=== PATIENT | female | born 1985 | race Caucasian/White ===

== ENCOUNTER → 2023-02-26 | Outpatient (CLI) | payer OTHER ==
[2023-02-26 17:31] LABS: ALT 21 U/L (8-44); AST 18 U/L (13-35); Albumin 4.3 d/dL (3.8-4.9); Albumin/Globulin Ratio 1.87 Ratio (1.60-3.17); Alkaline Phosphatase 65 U/L (41-126); Blood Urea Nitrogen 14.7 mg/dL (9.0-27.0); Calcium 9.4 mg/dL (8.7-10.3); Chloride 105 mmol/L (96-109); Globulin 2.3 d/dL (1.6-3.3); Glucose 86 mg/dL (70-110); Potassium 4.4 mmol/L (3.5-5.5); Sodium 139 mmol/L (135-145); Total Bilirubin 0.2 mg/dL (0.3-1.2); Total Protein 6.6 d/dL (6.2-8.2)
[2023-02-26 17:53] LABS: Basophils # (A) 0.04 X 10*3/uL (0.00-0.10); Basophils % (A) 0.6 %; Eosinophils # (A) 0.09 X 10*3/uL (0.04-0.35); Eosinophils % (A) 1.3 %; HCT 42.2 % (37.2-46.3); HGB 13.3 d/dL (12.0-15.0); Lymphocytes # (A) 1.94 X 10*3/uL (0.90-5.00); Lymphocytes % (A) 28.4 %; MCH 30.6 pg (27.0-32.0); MCHC 31.5 d/dL (32.0-37.0); Mean Platelet Volume 10.9 FL (9.5-12.2); Monocytes % (A) 5.9 %; NRBC Per 100 WBC 0 X 10*3/uL (0.00-0.01); Neutrophils # (A) 4.33 X 10*3/uL (1.80-7.70); Neutrophils % (A) 63.4 %; Platelet Count 319 X 10*3/uL (140-440); RBC 4.35 X 10*6/uL (4.10-5.20); WBC 6.83 X 10*3/uL (4.50-10.00)
== END | disposition home or self-care (01) ==
LOC: LABWHC1 10:45
PROVIDERS: ATTEND Nurse Practitioner Family
DX: R10.9 Unspecified abdominal pain (principal)
CPT/HCPCS: 36415; 80053; 85025

== ENCOUNTER 2023-12-16 10:12 | Observation (INO) | payer OTHER ==
[2023-12-16 11:47] LABS: Basophils % (A) 0 %; Eosinophils # (A) 0.2 k/uL (0-0.7); Eosinophils % (A) 2 %; HCT 44.2 % (34.0-46.0); Lymphocytes # (A) 1.9 k/uL (1.0-4.8); Lymphocytes % (A) 19 %; MCHC 31.7 g/dL (31.0-37.0); MCV 91.6 fL (80.0-100.0); Mean Platelet Volume 7.8; Monocytes # (A) 0.4 k/uL (0-1.0); Monocytes % (A) 4 %; Neutrophils % (A) 72 %; Platelet Count 329 k/uL (150-450); RBC 4.83 m/uL (3.80-5.40); RDW 13.3 % (11.5-15.5); WBC 9.7 k/uL (3.8-10.6)
[2023-12-16] MEDS: SODIUM CHLORIDE 0.9% 1,000 ML IV STA (11:49)
[2023-12-16 12:18] LABS: ALT 20 U/L (4-34); African American GFR (CKD) >90 (>60 ml/min/1.73 sqM); Anion Gap 7 mmol/L; Blood Urea Nitrogen 13 mg/dL (7-17); Calcium 9.2 mg/dL (8.4-10.2); Carbon Dioxide 22 mmol/L (22-30); Chloride 110 mmol/L (98-107); Glucose 99 mg/dL (74-99); Non-African American GFR(CKD) >90 (>60 ml/min/1.73 sqM); Sodium 139 mmol/L (137-145); Total Bilirubin 0.7 mg/dL (0.2-1.3)
[2023-12-16 12:24] LABS: INR 0.9 (<1.2); Partial Thromboplastin Time 26.5 sec (22.0-30.0); Prothrombin Time 9.9 sec (10.0-12.5)
[2023-12-16 12:26] LABS: Appearance,Urine Clear (Clear); Bacteria,Urine Few /hpf; Bilirubin,Urine Negative (Negative); Blood,Urine Negative (Negative); Color,Urine Colorless; Glucose,Urine (UA) Negative (Negative); Ketones,Urine Negative (Negative); Leukocyte Esterase,Urine Small (Negative); Mucus,Urine Rare /hpf; Nitrite,Urine Negative (Negative); Protein,Urine Negative (Negative); RBC,Urine 1 /hpf (0-5); Specific Gravity,Urine 1.008 (1.001-1.035); Squamous Epithelial Cell,Urine 7 /hpf (0-4); Urobilinogen,Urine <2.0 mg/dL (<2.0); WBC,Urine 3 /hpf (0-5)
--- NOTE | 2023-12-16 12:34 | XR ---
EXAMINATION TYPE: XR chest 2V DATE OF EXAM: 12/16/2023 12:06 PM CLINICAL INDICATION:Female, 38 years old with history of dysrhythmia; PHH COMPARISON: None TECHNIQUE: XR chest 2V Frontal and lateral views of the chest. FINDINGS: Lungs/Pleura: There is no evidence of pleural effusion, focal consolidation, or pneumothorax. Pulmonary vascularity: Unremarkable. Heart/mediastinum: Cardiomediastinal silhouette is unremarkable. Musculoskeletal: No acute osseous pathology. IMPRESSION: No acute cardiopulmonary disease/process.
[2023-12-16 12:43] LABS: Amphetamine Screen,Urine Not Detected (NotDetected); Benzodiazepines Screen,Urine Not Detected (NotDetected); Cocaine Screen,Urine Not Detected (NotDetected); Opiate Screen,Urine Not Detected (NotDetected); Phencyclidine Screen,Urine Not Detected (NotDetected); Tricyclic Antidepressant,Urine Not Detected (NotDetected); Urn Cannabinoid Scrn Not Detected (NotDetected)
[2023-12-16 12:44] LABS: Barbiturate Screen,Urine Not Detected (NotDetected); Methadone Screen, Urine Not Detected (NotDetected); Oxycodone Screen, Urine Not Detected (NotDetected)
--- NOTE | 2023-12-16 12:45 | ED ---
General Adult HPI - General Chief complaint: Arrhythmia/Palpitations Stated complaint: Irregular heart rate Time Seen by Provider: 12/16/23 12:37 Source: patient, RN notes reviewed, old records reviewed Mode of arrival: ambulatory Limitations: no limitations - History of Present Illness Initial comments: Patient is a 38-year-old female with past medical history remarkable for anxiety, who presents emergency department complaining of fatigue, as well as what she feels is intermittent bradycardia. 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 While at work today she felt the same way and they checked her pulse ox which registered in the 40s at 1 point. Presents for further evaluation at this time. Denies feeling anxious. Denies any chest pain or shortness of breath. Denies any nausea or vomiting or fevers. Denies any other acute complaints at this time. Current heart rate is within acceptable limits. Presents for further evaluation. No personal history of cardiac issues. - Related Data Home Medications Medication Instructions Recorded Confirmed Desvenlafaxine [Pristiq ER] 100 mg PO HS 12/16/23 12/16/23 Omeprazole [PriLOSEC] 20 mg PO HS 12/16/23 12/16/23 busPIRone HCL [Buspar] 7.5 mg PO HS 12/16/23 12/16/23 Allergies Allergy/AdvReac Type Severity Reaction Status Date / Time adhesive Allergy rash - Verified 12/16/23 13:06 paper tape OK amoxicillin Allergy Itching Verified 12/16/23 13:01 Review of Systems ROS Statement: Those systems with pertinent positive or pertinent negative responses have been documented in the HPI. Review of Systems: CONST: Denies fever EYES: Denies blurry vision ENT: Denies nasal congestion C/V: Denies Chest pain RESP: Denies shortness of breath GI: Denies abdominal pain : Denies dysuria SKIN: Denies rash. MSK: Denies joint pain. NEURO: Endorses general fatigue ROS Other: All systems not noted in ROS Statement are negative. Past Medical History Past Surgical History: Breast Surgery, Section, Cholecystectomy, Orthopedic Surgery, Tonsillectomy Additional Past Surgical History / Comment(s): lump removal L breast Past Psychological History: Anxiety, Depression Smoking Status: Never smoker Past Alcohol Use History: Occasional Past Drug Use History: None Reported General Exam - General Exam Comments Initial Comments: General: Appears in no acute distress. HEAD: Normal with no signs of head trauma. EYES: PERRLA, EOMI, conjunctiva normal, no discharge. ENT: Hearing grossly intact, normal oropharynx. RESPIRATORY: Clear breath sounds bilaterally. No wheezes, rales, or rhonchi. C/V: Regular rate and rhythm. S1 and S2 auscultated, no edema, peripheral pulses 2+ and intact throughout ABD: Abd is soft, nontender, nondistended EXT: Normal range of motion, no obvious deformity SKIN: No rashes or lesions observed on exposed skin. NEURO: Alert and oriented x 4. Cranial nerves II-XII intact. No focal sensory or strength deficits. 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 sent in by a medical professional or institution (, PA, HEALTH LEAD, urgent care, hospital, or correction...) When possible be specific @ -No Did you speak to anyone other than the patient for history (EMS, parent, family, police, friend...)? What history was obtained from this source @ -No Did you review nursing and triage notes (agree or disagree)? Why? @ -I reviewed and agree with nursing and triage notes Were old charts reviewed (outside hosp., previous admission, EMS record, old EKG, old radiological studies, urgent care reports/EKG's, correction records)? Report findings @ -No old charts were reviewed Differential Diagnosis (chest pain, altered mental status, abdominal pain women, abdominal pain men, vaginal bleeding, weakness, fever, dyspnea, syncope, headache, dizziness, GI bleed, back pain, seizure, CVA, palpatations, mental hea lth, musculoskeletal)? @ -Differential Palpitations Ventricular arrhythmias, atrial arrhythmias, myocardial infarction, anemia, thyrotoxicosis, electrolyte imbalance, hypokalemia, pulmonary embolism, pulmonary disease, drugs, alcohol, anxiety, stress.... This is not meant to be an all-inclusive list. EKG interpreted by me (3pts min.). @ -As above X-rays interpreted by me (1pt min.). @ -Chest x-ray reveals no obvious acute cardiopulmonary process. CT interpreted by me (1pt min.). @ -None done U/S interpreted by me (1pt. min.). @ -None done What testing was considered but not performed or refused? (CT, X-rays, U/S, labs)? Why? @ -None What meds were considered but not given or refused? Why? @ -None Did you discuss the management of the patient with other professionals (professionals i.e. , PA, HEALTH LEAD, lab, RT, psych nurse, social media senior associate, community education specialist, teacher, certification officer, telephonic case manager)? Give summary @ -No Was smoking cessation discussed for >3mins.? @ -No Was critical care preformed (if so, how long)? @ -No Were there social determinants of health that impacted care today? How? (Homelessness, low income, unemployed, alcoholism, drug addiction, transportation, low edu. Level, literacy, decrease access to med. care, halfway, rehab)? @ -No Was there de-escalation of care discussed even if they declined (Discuss DNR or withdrawal of care, Hospice)? DNR status @ -No What co-morbidities impacted this encounter? (DM, HTN, Smoking, COPD, CAD, Cancer, CVA, ARF, Chemo, Hep., AIDS, mental health diagnosis, sleep apnea, morbid obesity)? @ -None Was patient admitted / discharged? Hospital course, mention meds given and route, prescriptions, significant lab abnormalities, going to OR and other pertinent info. @ -Patient presents with fatigue and possible bradycardia. Currently is not bradycardic. We will obtain basic workup. Patient in agreement this plan. She will be started on IV fluid drip at this time. EKG shows intermittent PVCs but otherwise no evidence of acute ischemia. Labs remarkable forNo obvious acute findings. On reevaluation, I discussed results with the patient. No further bradycardic episodes that I can see. We did discuss that she has PVCs. Palpitations are chronic for the patient but the bradycardic episode at work was acute. 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 She was in agreement this plan. Cardiology consulted. I spoke with the accepting physician, Dr. Graves who accepted the admission. Undiagnosed new problem with uncertain prognosis? @ -No Drug Therapy requiring intensive monitoring for toxicity (Heparin, Nitro, Insulin, Cardizem)? @ -No Were any procedures done? @ -No Diagnosis/symptom? @ -Heart palpitations, possible symptomatic bradycardic episode Acute, or Chronic, or Acute on Chronic? @ -Acute Uncomplicated (without systemic symptoms) or Complicated (systemic symptoms)? @ -Complicated Side effects of treatment? @ -None Exacerbation, Progression, or Severe Exacerbation] @ -No Poses a threat to life or bodily function? @ -Potentially, patient has an arrhythmia. - Lab Data Result diagrams: 12/16/23 11:36 12/16/23 11:36 Lab Results 12/16/23 12/16/23 12/16/23 Range/Units 11:36 11:36 11:36 WBC 9.7 (3.8-10.6) k/uL RBC 4.83 (3.80-5.40) m/uL Hgb 14.0 (11.4-16.0) gm/dL Hct 44.2 (34.0-46.0) % MCV 91.6 (80.0-100.0) fL MCH 29.0 (25.0-35.0) pg MCHC 31.7 (31.0-37.0) g/dL RDW 13.3 (11.5-15.5) % Plt Count 329 (150-450) k/uL MPV 7.8 Neutrophils % 72 % Lymphocytes % 19 % Monocytes % 4 % Eosinophils % 2 % Basophils % 0 % Neutrophils # 7.0 (1.3-7.7) k/uL Lymphocytes # 1.9 (1.0-4.8) k/uL Monocytes # 0.4 (0-1.0) k/uL Eosinophils # 0.2 (0-0.7) k/uL Basophils # 0.0 (0-0.2) k/uL PT 9.9 L (10.0-12.5) sec INR 0.9 (<1.2) APTT 26.5 (22.0-30.0) sec Sodium 139 (137-145) mmol/L Potassium 4.7 (3.5-5.1) mmol/L Chloride 110 H (98-107) mmol/L Carbon Dioxide 22 (22-30) mmol/L Anion Gap 7 mmol/L BUN 13 (7-17) mg/dL Creatinine 0.57 (0.52-1.04) mg/dL Est GFR (CKD-EPI)AfAm >90 (>60 ml/min/1.73 sqM) Est GFR (CKD-EPI)NonAf >90 (>60 ml/min/1.73 sqM) Glucose 99 (74-99) mg/dL Calcium 9.2 (8.4-10.2) mg/dL Magnesium 2.0 (1.6-2.3) mg/dL Total Bilirubin 0.7 (0.2-1.3) mg/dL AST 36 (14-36) U/L ALT 20 (4-34) U/L Alkaline Phosphatase 75 (38-126) U/L Troponin I (0.000-0.034) ng/mL Total Protein 7.1 (6.3-8.2) g/dL Albumin 4.0 (3.5-5.0) g/dL TSH 1.720 (0.465-4.680) mIU/L Urine Color Urine Appearance (Clear) Urine pH (5.0-8.0) Ur Specific [place] (1.001-1.035) Urine Protein (Negative) Urine Glucose (UA) (Negative) Urine Ketones (Negative) Urine Blood (Negative) Urine Nitrite (Negative) Urine Bilirubin (Negative) Urine Urobilinogen (<2.0) mg/dL Ur Leukocyte Esterase (Negative) Urine RBC (0-5) /hpf Urine WBC (0-5) /hpf Ur Squamous Epith Cells (0-4) /hpf Urine Bacteria (None) /hpf Urine Mucus (None) /hpf Urine HCG, Qual (Not Detectd) Urine Opiates Screen (NotDetected) Ur Oxycodone Screen (NotDetected) Urine Methadone Screen (NotDetected) Ur Barbiturates Screen (NotDetected) U Tricyclic Antidepress (NotDetected) Ur Phencyclidine Scrn (NotDetected) Ur Amphetamines Screen (NotDetected) U Methamphetamines Scrn (NotDetected) U Benzodiazepines Scrn (NotDetected) Urine Cocaine Screen (NotDetected) U Marijuana (THC) Screen (NotDetected) 12/16/23 12/16/23 12/16/23 Range/Units 11:36 11:46 11:46 WBC (3.8-10.6) k/uL RBC (3.80-5.40) m/uL Hgb (11.4-16.0) gm/dL Hct (34.0-46.0) % MCV (80.0-100.0) fL MCH (25.0-35.0) pg MCHC (31.0-37.0) g/dL RDW (11.5-15.5) % Plt Count (150-450) k/uL MPV Neutrophils % % Lymphocytes % % Monocytes % % Eosinophils % % Basophils % % Neutrophils # (1.3-7.7) k/uL Lymphocytes # (1.0-4.8) k/uL Monocytes # (0-1.0) k/uL Eosinophils # (0-0.7) k/uL Basophils # (0-0.2) k/uL PT (10.0-12.5) sec INR (<1.2) APTT (22.0-30.0) sec Sodium (137-145) mmol/L Potassium (3.5-5.1) mmol/L Chloride (98-107) mmol/L Carbon Dioxide (22-30) mmol/L Anion Gap mmol/L BUN (7-17) mg/dL Creatinine (0.52-1.04) mg/dL Est GFR (CKD-EPI)AfAm (>60 ml/min/1.73 sqM) Est GFR (CKD-EPI)NonAf (>60 ml/min/1.73 sqM) Glucose (74-99) mg/dL Calcium (8.4-10.2) mg/dL Magnesium (1.6-2.3) mg/dL Total Bilirubin (0.2-1.3) mg/dL AST (14-36) U/L ALT (4-34) U/L Alkaline Phosphatase (38-126) U/L Troponin I <0.012 (0.000-0.034) ng/mL Total Protein (6.3-8.2) g/dL Albumin (3.5-5.0) g/dL TSH (0.465-4.680) mIU/L Urine Color Colorless Urine Appearance Clear (Clear) Urine pH 6.0 (5.0-8.0) Ur Specific [place] 1.008 (1.001-1.035) Urine Protein Negative (Negative) Urine Glucose (UA) Negative (Negative) Urine Ketones Negative (Negative) Urine Blood Negative (Negative) Urine Nitrite Negative (Negative) Urine Bilirubin Negative (Negative) Urine Urobilinogen <2.0 (<2.0) mg/dL Ur Leukocyte Esterase Small H (Negative) Urine RBC 1 (0-5) /hpf Urine WBC 3 (0-5) /hpf Ur Squamous Epith Cells 7 H (0-4) /hpf Urine Bacteria Few H (None) /hpf Urine Mucus Rare H (None) /hpf Urine HCG, Qual Not Detected (Not Detectd) Urine Opiates Screen Not Detected (NotDetected) Ur Oxycodone Screen Not Detected (NotDetected) Urine Methadone Screen Not Detected (NotDetected) Ur Barbiturates Screen Not Detected (NotDetected) U Tricyclic Antidepress Not Detected (NotDetected) Ur Phencyclidine Scrn Not Detected (NotDetected) Ur Amphetamines Screen Not Detected (NotDetected) U Methamphetamines Scrn Not Detected (NotDetected) U Benzodiazepines Scrn Not Detected (NotDetected) Urine Cocaine Screen Not Detected (NotDetected) U Marijuana (THC) Screen Not Detected (NotDetected) - EKG Data -: EKG Interpreted by Me EKG Comments: 12-lead Electrocardiogram Interpretation Note EKG was reviewed and interpreted by myself. 12-lead ECG performed at 1124 is interpreted by me as revealing normal sinus rhythm at a rate of 84 beats per minute. Stanley is normal. FL interval is 150 ms, QRS durations 82 ms, QTc is 400 ms.. There were no ST or T wave abnormalities to suggest myocardial ischemia or injury. R wave progression across the precordium was satisfactory. Patient has frequent PVCs. By my interpretation this EKG is non-diagnostic for acute ischemia. Disposition Clinical Impression: Heart palpitations Narrative: concern for bradycardic episode. Disposition: ADMITTED IP TO THIS HOSP Condition: Stable Time of Disposition: 13:27
[2023-12-16 13:10] LABS: AST 36 U/L (14-36); Potassium 4.7 mmol/L (3.5-5.1); Total Protein 7.1 g/dL (6.3-8.2)
[2023-12-16 13:11] LABS: Alkaline Phosphatase 75 U/L (38-126)
[2023-12-16] MEDS ORDERED: ONDANSETRON 4 MG/2 ML VIAL IVP PRN (13:34)
[2023-12-16] MEDS ORDERED: NALOXONE 0.4 MG/ML 1 ML VIAL IV PRN (13:34)
[2023-12-16] MEDS ORDERED: ALPRAZolam 0.25 MG TAB PO PRN (15:50)
[2023-12-16] MEDS: PANTOPRAZOLE 40 MG TABLET PO SCH (22:46)
[2023-12-16] MEDS: busPIRone HCl 5 MG TAB PO SCH (22:46)
[2023-12-16] MEDS: HEPARIN SODIUM,PORCINE 5,000 UNIT/ML 1 ML VIAL SQ SCH (22:48)
--- NOTE | 2023-12-16 22:52 | HP ---
HISTORY AND PHYSICAL CHIEF COMPLAINT: Presyncope and palpitations. 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 The patient had previous workup and was scheduled to have a Cardiology evaluation locally, otherwise currently the EKG telemetry showed frequent PVCs. The patient is being admitted for further evaluation. There is no history of any fever, rigors, or chills. PAST MEDICAL HISTORY: History of breast surgery, history of cholecystectomy, anxiety, depression, rest of the chart, rest of the history is also reviewed. HOME MEDICATIONS: Prilosec, dose and rest of medications reviewed. ALLERGIES: Adhesives. FAMILY HISTORY: No history of heart disease or strokes in the family. SOCIAL HISTORY: No history of smoking, occasional alcohol. REVIEW OF SYSTEMS: A 14-point review is negative except as mentioned earlier. PHYSICAL EXAMINATION: VITAL SIGNS: Pulse is 97, irregular because of PVCs. Respirations 18, blood pressure 128/87. HEENT: Conjunctivae normal. NECK: No jugular venous distention. CARDIOVASCULAR: S1, S2. RESPIRATIONS: Diminished at the bases. ABDOMEN: Soft, nontender. LEGS: No edema, no swelling. NERVOUS SYSTEM: No focal deficits. SKIN: No ulcer, rash, bleeding. JOINTS: No active deforming arthropathy. LABORATORY DATA: Reviewed. TSH is normal. ASSESSMENT: 1. Cardiac arrhythmia, possible PVCs. 2. Presyncope for evaluation. 3. Cholecystectomy. 4. Anxiety, depression. RECOMMENDATIONS AND DISCUSSION: This 38-year-old woman presented with multiple cardiac issues at this time. We will monitor the patient closely. Recommended 2D echo with Doppler. Other than that, cardiology consultation, telemetry. The patient might require Reveal monitor, last time the patient was only able to tolerate 3 days of Holter monitoring because of apparent allergy to lead adhesives. PROGNOSIS: Guarded. Further recommendations to follow. MMODL / IJN: [id number] /
[2023-12-16] MEDS: DESVENLAFAXINE SUCCINATE 50 MG TAB.ER.24H PO SCH (23:52)
[2023-12-17 08:58] VITALS: BP 124/83; PULSE 92
[2023-12-17 08:59] VITALS: RESP 17; TEMP 98.8
[2023-12-17 10:20] LABS: Basophils # (A) 0.06 X 10*3/uL (0.00-0.10); Basophils % (A) 0.6 %; Eosinophils # (A) 0.15 X 10*3/uL (0.04-0.35); Eosinophils % (A) 1.4 %; HCT 45.2 % (37.2-46.3); HGB 14.2 g/dL (12.0-15.0); Lymphocytes # (A) 2.17 X 10*3/uL (0.90-5.00); Lymphocytes % (A) 20.5 %; MCHC 31.4 g/dL (32.0-37.0); MCV 92.4 FL (80.0-97.0); Mean Platelet Volume 10.7 FL (9.5-12.2); Monocytes # (A) 0.57 X 10*3/uL (0.20-1.00); Monocytes % (A) 5.4 %; NRBC Per 100 WBC 0 X 10*3/uL (0.00-0.01); Neutrophils # (A) 7.62 X 10*3/uL (1.80-7.70); Neutrophils % (A) 71.7 %; Platelet Count 397 X 10*3/uL (140-440); RBC 4.89 X 10*6/uL (4.10-5.20); RDW 13.4 % (11.5-14.5); WBC 10.61 X 10*3/uL (4.50-10.00)
--- NOTE | 2023-12-17 10:30 | P.CRDCN ---
History of Present Illness Consult date: 12/17/23 Reason for Consult (text): Fatigue, bradycardia at work, concern for symptomatic bradycardia. 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 Dejon Salmon, in [place]. She states she has undergone recent Holter monitor for 7 days, echocardiogram that were reported to her as normal. She also had a stress test done about 1 year ago. Patient states that she palpitations over the past year but 2 days ago seem to be worse. She checked her blood pressure at work and her heart rate was seeming to jump from 40-100. It was checked multiple times and was the same. She is normally quite active and has noted that she has more shortness of breath with activity that was previously easy for her. She denies have any lower extremity edema. No lightheadedness or dizziness, no syncopal episodes. Patient denies any PND. No cough or sputum production. No fever or chills. No blood in her stools or urine. No history of CVA or seizures. She is a non-smoker. She drinks occasional alcohol. She drinks caffeine in the form of a pop 1/day. Patient gives history that she was on a beta-omid in the past but it made her too tired and she stopped it. EKG sinus rhythm with frequent PVCs Chest x-ray: No acute process WBC 10.6, hemoglobin 14.2. Sodium 139, potassium 4.7, BUN 13 creatinine 0.57. Troponin negative x 1. C-reactive protein 0.9. TSH 1.72. Magnesium 2.0. Urinalysis few bacteria. hCG not detected. Urine drug screen negative. Home cardiac medications: None Review Of Systems: At the time of my exam: CONSTITUTIONAL: Denies fever or chills. HEENT: Denies blurred vision, vision changes, or eye pain. Denies hemoptysis CARDIOVASCULAR: Denies chest pain. Denies orthopnea. Denies PND. Denies palpitations RESPIRATORY: Denies shortness of breath. GASTROINTESTINAL: Denies abdominal pain. Denies nausea or vomiting. HEMATOLOGIC: Denies bleeding disorders. GENITOURINARY: Denies any blood in urine. SKIN: Denies pruitis. Denies rash. Physical examination: Gen: This is a 38-year-old female in no acute distress VS: reviewed, blood pressure 124/83, heart rate 92, pulse ox 98% on room air. HEENT: Head is atraumatic, normocephalic. Pupils equal, round. Sclerae is anicteric. NECK: Supple. No JVD. LUNGS: Clear to auscultation. No wheezes or rhonchi. No intercostal retractions. HEART: Regular rate and rhythm. Systolic murmur with radiation to the right neck. ABDOMEN: Soft No tenderness. EXTREMITIES: No pedal edema. No calf tenderness. NEUROLOGICAL: Patient is awake, alert and oriented x3. Assessment: Exertional dyspnea Systolic murmur concerning for aortic valve abnormality Frequent PVCs not concerning but explained to patient that these beats are not picked up by her pulse ox or blood pressure machine so heart rate will be reported low History of hypoglycemia History of GERD Plan: Obtain stress echocardiogram today Obtain 2-D echocardiogram and Doppler study to assess cardiac structure and function If testing is unremarkable, patient is cleared for discharge and may follow-up with her primary inclusion special education teacher in 1 to 2 weeks. Thank you kindly for this consultation. Nurse practitioner note has been reviewed, I agree with documented findings and plan of care. Patient was seen and examined. Past Medical History Past Medical History: Rheumatoid Arthritis (RA) Additional Past Medical History / Comment(s): Optic neritis, heart palpatations, murmur History of Any Multi-Drug Resistant Organisms: None Reported Past Surgical History: Adenoidectomy, Breast Surgery, Section, Cholecystectomy, Orthopedic Surgery, Tonsillectomy Additional Past Surgical History / Comment(s): lump removal L breast (benign) Past Anesthesia/Blood Transfusion Reactions: No Reported Reaction Past Psychological History: Anxiety, Depression Smoking Status: Never smoker Past Alcohol Use History: Occasional Past Drug Use History: None Reported - Past Family History Father Additional Family Medical History / Comment(s): Leaky valve Medications and Allergies Home Medications Medication Instructions Recorded Confirmed Type Desvenlafaxine [Pristiq ER] 100 mg PO HS 12/16/23 12/16/23 History Omeprazole [PriLOSEC] 20 mg PO HS 12/16/23 12/16/23 History busPIRone HCL [Buspar] 7.5 mg PO HS 12/16/23 12/16/23 History Allergies Allergy/AdvReac Type Severity Reaction Status Date / Time adhesive Allergy rash - Verified 12/16/23 13:06 paper tape OK amoxicillin Allergy Itching Verified 12/16/23 13:01 Physical Exam Vitals: Vital Signs Temp Pulse Pulse Resp BP Pulse Ox 12/17/23 04:56 98.1 F 87 19 122/88 97 12/17/23 02:08 99 15 12/16/23 23:49 85 19 118/87 98 12/16/23 21:00 79 18 113/75 98 12/16/23 11:49 97 12/16/23 11:44 97 18 97 12/16/23 10:30 98.2 F 87 20 128/87 100 Intake and Output 12/16/23 12/17/23 12/17/23 22:59 06:59 14:59 Other: Weight 97.522 kg Results 12/16/23 11:36 12/16/23 11:36 Cardiac Enzymes 12/16/23 12/16/23 Range/Units 11:36 11:36 AST 36 (14-36) U/L Troponin I <0.012 (0.000-0.034) ng/mL Coagulation 12/16/23 Range/Units 11:36 PT 9.9 L (10.0-12.5) sec APTT 26.5 (22.0-30.0) sec CBC 12/16/23 Range/Units 11:36 WBC 9.7 (3.8-10.6) k/uL RBC 4.83 (3.80-5.40) m/uL Hgb 14.0 (11.4-16.0) gm/dL Hct 44.2 (34.0-46.0) % Plt Count 329 (150-450) k/uL Comprehensive Metabolic Panel 12/16/23 Range/Units 11:36 Sodium 139 (137-145) mmol/L Potassium 4.7 (3.5-5.1) mmol/L Chloride 110 H (98-107) mmol/L Carbon Dioxide 22 (22-30) mmol/L BUN 13 (7-17) mg/dL Creatinine 0.57 (0.52-1.04) mg/dL Glucose 99 (74-99) mg/dL Calcium 9.2 (8.4-10.2) mg/dL AST 36 (14-36) U/L ALT 20 (4-34) U/L Alkaline Phosphatase 75 (38-126) U/L Total Protein 7.1 (6.3-8.2) g/dL Albumin 4.0 (3.5-5.0) g/dL Current Medications Generic Name Dose Route Start Last Admin Trade Name Freq PRN Reason Stop Dose Admin Alprazolam 0.25 mg 12/16/23 15:50 Alprazolam 0.25 Mg Tab PO TID PRN Anxiety Buspirone HCl 7.5 mg 12/16/23 21:00 12/16/23 22:46 Buspirone Hcl 5 Mg Tab PO 7.5 mg HS MIGUEL Administration Desvenlafaxine Succinate 100 mg 12/16/23 21:00 12/16/23 23:52 Desvenlafaxine Succinate 50 Mg Tab.Er.24h PO 100 mg HS MIGUEL Administration Heparin Sodium (Porcine) 5,000 unit 12/16/23 16:00 12/16/23 23:55 Heparin Sodium,Porcine 5,000 Unit/Ml 1 Ml Vial SQ Not Given Q8HR MIGUEL Naloxone HCl 0.2 mg 12/16/23 13:34 Naloxone 0.4 Mg/Ml 1 Ml Vial IV Q2M PRN Opioid Reversal Ondansetron HCl 4 mg 12/16/23 13:34 Ondansetron 4 Mg/2 Ml Vial IVP Q8HR PRN Nausea And Vomiting Pantoprazole Sodium 40 mg 12/16/23 21:00 12/16/23 22:46 Pantoprazole 40 Mg Tablet PO 40 mg HS MIGUEL Administration Intake and Output 12/16/23 12/17/23 12/17/23 22:59 06:59 14:59 Other: Weight 97.522 kg 12/16/23 11:36 12/16/23 11:36
[2023-12-17 10:41] LABS: ALT 17 U/L (8-44); AST 18 U/L (13-35); Albumin 4.5 g/dL (3.8-4.9); Albumin/Globulin Ratio 1.73 Ratio (1.60-3.17); Alkaline Phosphatase 80 U/L (41-126); Blood Urea Nitrogen 11.6 mg/dL (9.0-27.0); Calcium 9.5 mg/dL (8.7-10.3); Carbon Dioxide 24.8 mmol/L (21.6-31.8); Chloride 103 mmol/L (96-109); Globulin 2.6 g/dL (1.6-3.3); Glucose 117 mg/dL (70-110); Potassium 4.2 mmol/L (3.5-5.5); Sodium 139 mmol/L (135-145); Total Bilirubin 0.4 mg/dL (0.3-1.2); Total Protein 7.1 g/dL (6.2-8.2)
--- NOTE | 2023-12-17 12:34 | CA ---
Stress Echo Report Kenyatta Deleon Age: 38 Gender: F : 1985 Exam Date: 12/17/2023 10:53 Exam Location: [facility] Ht (in): 65 Wt (lb): 215 Ordering Physician: Katerina Singh Referring Physician: DEBRA Receiving Dock Checker: LEVI Technologist Procedure CPT: Indication: chest pain w exertion ICD-9 Codes: Rhythm: Patient History: Cardiac Medications: SEE CHART Medications in past 24 hours: Contrast: Stress Results Protocol: Terence Total dose(mL): Exercise Duration (min:sec): 7:[address] Depression (mm): Angina Score: Gomes Score: METS: 9.5 Resting HR: 113 Resting BP: 116 / 73 Peak HR: 168 Peak BP: 202 / 72 Max Predicted HR: 180 93 % Max Predicted HR Target HR: 153 Double Product: [id number] Stress Summary: The patient's target heart rate was achieved BP Response: Reason for Termination: Reached target heart rate or work-load Cardiac Symptoms: NO SYMPTOMS ECG Analysis Resting ECG: Normal sinus rhythm, normal ECG Stress ECG: No abnormal ST/T wave changes with exercise Arrhythmia: None Echo Analysis Resting Echo: Normal resting echocardiogram. Peak Echo Analysis: Normal treadmill stress echocardiogram. MEASUREMENTS (Male/Female) Normal Values CONCLUSIONS 1. Average exercise tolerance 2. Normal electrocardiographic response to exercise with no evidence of exercise induced ischemia 3. Normal stress echocardiogram with no evidence of stress induced ischemia Dr. Lety Paredes MD (Electronically Signed) Final Date: 17 Dec 2023 12:33
--- NOTE | 2023-12-17 12:52 | CA ---
Transthoracic Echo Report Name: Kenyatta Deleon Age: 38 Gender: F : 1985 Exam Date: 12/17/2023 11:24 Exam Location: [address] Echo Ht (in): 65 Wt (lb): 215 Ordering Physician: Chip Graves MD Attending/Referring Phys: [id number], [employer] Worker Park Sharma, [facility] Procedure CPT: Indications: Arrythmia Cardiac Hx: Technical Quality: Contrast 1: Total Dose (mL): Contrast 2: Total Dose (mL): MEASUREMENTS (Male / Female) Normal Values 2D ECHO LV Diastolic Diameter PLAX 3.4 cm 4.2 - 5.9 / 3.9 - 5.3 cm LV Systolic Diameter PLAX 2.3 cm IVS Diastolic Thickness 1.0 cm 0.6 - 1.0 / 0.6 - 0.9 cm LVPW Diastolic Thickness 1.0 cm 0.6 - 1.0 / 0.6 - 0.9 cm LV Relative Wall Thickness 0.6 RV Internal Dim ED PLAX 3.1 cm LA Systolic Diameter LX 3.0 cm 3.0 - 4.0 / 2.7 - 3.8 cm LA Volume 34.7 cm??? 18 - 58 / 22 - 52 cm??? LA Volume Index 16.1 cm???/m??? 16 - 28 cm???/m??? DOPPLER AV Peak Velocity 116.3 cm/s AV Peak Gradient 5.4 mmHg MV Area PHT 3.2 cm??? Mitral E Point Velocity 73.5 cm/s Mitral A Point Velocity 69.2 cm/s Mitral E to A Ratio 1.1 MV Deceleration Time 238.5 ms TR Peak Velocity 168.1 cm/s TR Peak Gradient 11.3 mmHg FINDINGS Left Ventricle Left ventricular ejection fraction is estimated at 55-60 %. Small left ventricular cavity. Left ventricular wall thickness normal. Normal left ventricular wall motion. Right Ventricle Normal right ventricular size and function. Unable to estimate the right ventricular systolic pressure. Right Atrium Normal right atrial size. No right atrial thrombus or mass seen. Left Atrium Normal left atrial size. No left atrial thrombus or mass present. Mitral Valve Structurally normal mitral valve. No mitral stenosis, or prolapse.trace mitral regurgitation. Aortic Valve Trileaflet aortic valve. No aortic valve stenosis or regurgitation. Tricuspid Valve Structurally normal tricuspid valve. No tricuspid stenosis, or prolapse.trace tricuspid regurgitation. Pulmonic Valve Structurally normal pulmonic valve. No pulmonic regurgitation. Pericardium No pericardial effusion. No pleural effusion. Aorta Normal size aortic root and proximal ascending aorta. CONCLUSIONS 1. Normal left ventricular size and systolic function 2. Trace mitral and tricuspid regurgitation Previewed by: Dr. Lety Paredes MD (Electronically Signed) Final Date: 17 Dec 2023 12:51
--- NOTE | 2023-12-22 07:18 | P.DS ---
Providers Date of admission: 12/16/23 13:36 Expected date of discharge: 12/17/23 Attending physician: Chip Graves MD Consults: 12/16/23 13:34 Consult Physician Routine Consulting Provider: [facility] Consult Reason/Comments: fatigue, bradycardia at work. concern for symptomatic chet Do you want consulting provider notified?: Yes Primary care physician: Salo Juarez MD Hospital Course: Final diagnosis Cardiac arrhythmia, possible PVC Presyncopal episode ruled out History of cholecystectomy History of anxiety/depression Obesity with a BMI of 35.8 GI prophylaxis DVT prophylaxis Full code Discharge disposition Patient is being discharged in a stable condition with guarded prognosis to home. Patient will follow-up with Dr. Jerry in the outpatient setting upon discharge. Patient is to continue with current medications and outpatient follow-up with cardiology as scheduled. Total time taken is greater than 35 minutes. Hospital course This is a 38 year-old female who was recently admitted with chest pain with concerns of palpitations with irregular heartbeat being closely monitored. Patient has been evaluated by cardiology previously only able to tolerate 3 days of Holter monitor due to intolerance with sensitivity to the electrical leads. Patient underwent stress test which was negative for inducible ischemia and has been cleared by cardiology. Patient may need a reveal monitor which will be followed in the outpatient setting. Please refer to cardiology notes for further HPI. Currently no reports of chest pain, shortness of breath, or palpitations. Patient is afebrile. No reports of nausea or vomiting and patient is tolerating diet. Patient will be discharged home with guarded prognosis today. Physical exam: Gen: This is a 38-year-old female who is awake, alert and oriented x 3, well- developed, well-nourished, obese HEENT: Head is atraumatic, normocephalic. Pupils equal, round. Sclerae is anicteric. NECK: Supple. No JVD. No lymphadenopathy. No thyromegaly. LUNGS: Clear to auscultation. No wheezes or rhonchi. No intercostal retractions. HEART: Regular rate and rhythm. No murmur. ABDOMEN: Soft. Bowel sounds are present. No masses. No tenderness. EXTREMITIES: No pedal edema. No calf tenderness. NEUROLOGICAL: Patient is awake, alert and oriented x3. Cranial nerves 2 through 12 are grossly intact. Please refer to medication reconciliation sheet for a list of medications. The impression and plan of care has been dictated by Lisa Ceron, Nurse Practitioner as directed. Dr. Tremayne MD I have performed a history and examination and MDM of this patient, discussed the same with the dictator, and agree with the dictator's assessment and plan as written ,documented as a scribe. Based on total visit time, I have performed more than 50% of the visit. Patient Condition at Discharge: Stable Plan - Discharge Summary Discharge Rx Participant: No New Discharge Prescriptions: Continue Omeprazole [PriLOSEC] 20 mg PO HS busPIRone HCL [Buspar] 7.5 mg PO HS Desvenlafaxine [Pristiq ER] 100 mg PO HS Discharge Medication List Desvenlafaxine [Pristiq ER] 100 mg PO HS 12/16/23 [History] Omeprazole [PriLOSEC] 20 mg PO HS 12/16/23 [History] busPIRone HCL [Buspar] 7.5 mg PO HS 12/16/23 [History] Follow up Appointment(s)/Referral(s): Melvi Simpson MD [STAFF PHYSICIAN] - 1 Week ([facility] will call patient to make appointment.) Salo Juarez MD [Primary Care Provider] - 1-2 days Patient Instructions/Handouts: Heart Palpitations (DC) Activity/Diet/Wound Care/Special Instructions: Activity limited until follow-up Follow-up with primary care provider on discharge Follow-up with cardiology outpatient to discuss possible loop recorder or other options for monitoring Discharge Disposition: HOME SELF-CARE
== END 2023-12-17 15:08 | disposition home or self-care (01) ==
LOC: EC 10:12 → 6NMEDSUR 13:36
PROVIDERS: ADMIT Internal Medicine; ATTEND Internal Medicine
DX: R06.09 Other forms of dyspnea (principal); R01.1 Cardiac murmur, unspecified; R00.1 Bradycardia, unspecified; R73.09 Other abnormal glucose; K21.9 Gastro-esophageal reflux disease without esophagitis; M06.9 Rheumatoid arthritis, unspecified; F41.8 Other specified anxiety disorders; Z90.49 Acquired absence of other specified parts of digestive tract; R94.31 Abnormal electrocardiogram [ECG] [EKG]
CPT/HCPCS: 96361 ×2; 96360; 99285; 36415; 93005; 93306; 93351; 80053 ×2; 85652; 83735; 84443; 84484; 85025 ×2; 85610; 85730; 86140; 81001; 81025; 80306; 71046; G0378 ×2; 96372